=== PATIENT | female | born 1975 | race Caucasian/White ===

== ENCOUNTER → 2024-09-09 10:54 | Outpatient (REF) | payer OTHER, SELFPAY ==
--- OUTSIDE RECORDS SUMMARY | 2024-09-09 12:04 | XMS_ITS | Clinical Summary ---
Author Organization [facility] Address [address] [place] [address] Care Team Providers Care Globe Tester Name Role Phone Unavailable Primary Care Provider Unavailabl e Social History Tobacco Use Types Packs/Day Years Used Date Smoking Tobacco: Never Assessed Sex and Gender Information Value Date Recorded Sex Assigned at Not on file Gender Identity Not on file Sexual Orientation Not on file Plan of Treatment Not on file
== END ==
LOC: HO.SL 10:54
PROVIDERS: PCP Nurse Practitioner Family; Visit Provider Registered Nurse
DX: G47.33 Obstructive sleep apnea (adult) (pediatric) (principal)
CPT/HCPCS: 95806

== ENCOUNTER → 2024-09-09 21:00 | Outpatient (BNV) | payer OTHER, SELFPAY | PROVIDERS: PCP Nurse Practitioner Family; Visit Provider Internal Medicine | DX: G47.33 Obstructive sleep apnea (adult) (pediatric) (principal) | CPT/HCPCS: 95806 ==

== ENCOUNTER 2024-11-24 14:22 | Outpatient (AMB) | payer OTHER, SELFPAY ==
--- NOTE | 2024-11-24 14:24 | A.OFFVIS_ITS ---
Intake Visit Reasons: 6m Accompanied by: Mother Allergies almotriptan (From [facility]) Allergy (Unknown, Verified 11/24/24 14:25) Unknown Medication List - Last Reconciled 11/24/24 by Anna Yi CNP amitriptyline-chlordiazepoxide 12.5-5 mg 1 tab PO BEDTIME 30 days biaienpxyu-ykhltyfjicgnk-xjmx 50-325-40 mg 1 - 2 tabs PO Q8H PRN dextroamphetamine-amphetamine 20 mg 1 tab PO BID furosemide 20 mg PO BID irbesartan 75 mg PO DAILY levothyroxine 25 mcg PO DAILY omeprazole 20 mg PO DAILY propranolol ER 80 mg PO DAILY sumatriptan succinate 50 mg PO HPI Comments Details: She was doing okay. She had sleep study in 09/2024 which showed moderately severe VIVIANE. She has not started using CPAP yet, has appt to get supplies next month. No CP/SOB. Headaches have been okay. Few headaches a month which may be triggered by weather or pressure changes. Butalbital as needed helps. She initially decided to hold off on sleep study after starting Modafinil as energy and daytime sleepiness was better with medication. Hx of migraines with and without aura and syncope. Migraines triggered by weather/change in barometric pressure. She did not like how she felt with Tramadol and it not help much. Was seen by PCP and ENT in the past. Eye exam unchanged. [place] [facility] [place]. Dizziness with lightheadedness resolved, no syncopal episodes. [facility] Medical History (Updated 11/24/24 @ 14:34 by Anna Yi CNP) Hypertension Review of Systems Const Denies chills, Denies daytime sleepiness, Denies difficulty sleeping, Denies fatigue, Denies fever(s), Denies frequent falls, Reports headache(s), Denies increased appetite, Denies poor appetite, Denies snoring, Denies weakness, Denies weight gain and Denies weight loss Eyes Denies loss of vision ENT Denies vertigo, Denies dizziness, Reports headache(s) and Denies neck pain Card Denies chest pain at rest, Denies chest pain with activity, Denies syncope, Denies leg edema, Denies palpitations, Denies dyspnea and Denies dyspnea on exertion Resp Denies cough, Denies dyspnea, Denies dyspnea on exertion and Denies snoring GI Denies abdominal pain, Denies constipation, Denies heartburn, Denies diarrhea and Denies nausea Denies urinary frequency, Denies urinary incontinence and Denies urinary urgency Musc Denies abnormal gait, Denies back pain, Denies myalgias, Denies arthralgias, Denies neck pain, Denies numbness and Denies tingling Neuro Denies abnormal gait, Denies vertigo, Denies dizziness, Denies syncope, Denies frequent falls, Reports headache(s), Denies lack of coordination, Denies loss of vision, Denies memory loss, Denies numbness, Denies Other visual disturbances, Denies restless legs, Denies seizure-like activity, Denies tingling, Denies paresthesias, Denies tremor(s) and Denies weakness Psych Denies anxiety, Denies depression, Denies auditory hallucinations, Denies memory loss and Denies visual hallucinations Endo Denies fatigue and Denies palpitations Physical Exam Const Other: General Appearance:? normal, in no acute distress. Heart:? S1, S2 normal, no murmurs. Lungs:? clear anteriorly and posteriorly. Musculoskeletal:? normal. Extremities:? no edema. Psych:? alert, oriented, cognitive function intact, cooperative with exam. Neuro Other: Abnormal Neurological Findings:?none.? Mental Status: alert and oriented X 3. Normal attention, orientation, memory, and affect. Cranial Nerves: Pupils are equal, round, and reactive to light. External ocular muscles are intact. Visual scott are full, no ptosis. Face is symmetrical, no facial weakness or droop. Facial sensations are normal. Tongue protrudes in midline. Palate elevates symmetrically. Shoulder shrugging is normal Motor Examination: Normal muscle tone, bulk and strength. No atrophy or fasciculations. No drift of the extended upper extremities. DTR 2+. Plantars are flexor. Sensory Exam: Normal light touch, temperature, pinprick, vibration, and joint- position sensations. Rhomberg sign is absent. Coordination: No ataxia. No titubation. Gait Exam: Within normal limits. Cerebellar Signs: Lmjiqh-lu-uide and sdom-uq-vwkr is normal. No dysdiadochokinesia. Extrapyramidal System: No tremor, rigidity with normal facial expressions. No bradykinesia. No bradyphrenia. Normal arm swing and posture. No propulsion or retropulsion. Speech: Normal. Results Reviewed Results Reviewed: Home Sleep Study 09/2024: VIVIANE, moderately severe, total sleep time AHI 24 and snoring for 41% of the sleep time. In addition, there is significant noctural hypoxemia with average O2 sat of 85% and O2 sat below 88% for 219 minutes, s uggestive of associated chronic lung disease. Assessment & Plan Assessment & Plan (1) Migraine: Code(s): G43.909 - Migraine, unspecified, not intractable, without status migrainosus Category: Medical Qualifiers: Migraine type: unspecified Status migrainosus presence: without status migrainosus Intractability: not intractable Qualified Code(s): G43.909 - Migraine, unspecified, not intractable, without status migrainosus Plan: Continue amitriptyline-chlordiazepoxide 12.5-5mg 1 tablet at bedtime. Continue gqsziticvr-FPYJ-rgkq 50-325-40mg 1-2 tablets as needed q8h for headache #30 for 30 days. (2) VIVIANE (obstructive sleep apnea): Code(s): G47.33 - Obstructive sleep apnea (adult) (pediatric) Category: Medical Plan: Home sleep study results reviewed. CPAP orders previously sent and she was waiting for equipment. Will forward sleep study report to PCP. Follow up with PCP for ?chronic lung disease. Plan Meds tried: chlor-amitriptyline, propranolol Medications: New kcipmweyfx-lbpqrpbpxokgp-tgsk 50-325-40 mg 1 - 2 tabs PO Q8H PRN 30 tabs 5RF headache 30 days Coding Level of Care Code Est Pt Level 4 (34683) Diagnoses Migraine without status migrainosus, not intractable, unspecified migraine type G43.909 Migraine type: unspecified Status migrainosus presence: without status migrainosus Intractability: not intractable VIVIANE (obstructive sleep apnea) G47.33
--- OUTSIDE RECORDS SUMMARY | 2024-11-24 17:38 | XMS_ITS | Clinical Summary ---
Author Organization [facility] Address [address] [place] [address] Care Team Providers Care Pattern Shop Supervisor Name Role Phone Unavailable Primary Care Provider Unavailabl e Social History Tobacco Use Types Packs/Day Years Used Date Smoking Tobacco: Never Assessed Sex and Gender Information Value Date Recorded Sex Assigned at Not on file Gender Identity Not on file Sexual Orientation Not on file Plan of Treatment Not on file
== END 2024-11-24 14:45 | disposition home or self-care (01) ==
LOC: HO.HSM 14:23
PROVIDERS: PCP Nurse Practitioner Family; Referring Provider Internal Medicine; Visit Provider Registered Nurse
DX: G43.909 Migraine, unspecified, not intractable, without status migrainosus (principal); G47.33 Obstructive sleep apnea (adult) (pediatric)
CPT/HCPCS: 99214